=== PATIENT | male | born 1960 | race Caucasian/White ===

== ENCOUNTER 2017-07-27 09:33 | Day surgery (SDC) | payer OTHER ==
[~2017-07-27] VITALS: Ht 188 cm; Wt 97.1 kg
[~2017-07-27 09:33] MED LIST: OMEPRAZOLE20 MG PO
--- NOTE | 2017-07-27 14:37 | NUR ---
07/27/17 1437 Ashia Macdonald 1427: PT ARRIVED TO PACU NEEDED AIRWAY SUPPORT BY OVIDIO COLMENARES. 1432: PT AWAKE AND TALKING, MAINTAINING OWN AIRWAY. DENINES ANY PAIN OR NAUSEA.
[2017-07-27] MEDS ORDERED: HYDROCODON-ACE1 EA10 PO (14:43)
[2017-07-27] MEDS ORDERED: MAPAP325 MG PO (14:43)
--- NOTE | 2017-07-27 15:14 | NUR ---
ICED WATER AND SOUP GIVEN. CALL LIGHT W/IN REACH. SPOUSE @ BS.
--- NOTE | 2017-07-27 15:55 | NUR ---
LE 1540: PT UP TO BR W/RN STANDBY. PT AMBULATES WELL AND VOIDS 800 ML CLEAR YELLOW URINE. MD IN TO SPEAK W/PATIENT AND SPOUSE AND THEN OKAYS DC HOME. VERBAL DC INSTRUCTIONS GIVEN AND BOTH VERBALIZE UNDERSTANDING. PT TRANSFERS SELF WELL TO AND PERSONAL VEHICLE.
--- NOTE | 2017-07-31 10:36 | OR ---
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 PROCEDURE Excision of sternal skin lesion with layered closure (3.0 cm). Excision of right facial melanoma in situ, excision size 5.5 cm. SURGEON: Georgia Greene MD. ANESTHESIA Local with monitored anesthesia care (Yvonne Saxena CRNA) and local anesthetic 1% Lidocaine with epinephrine. INDICATION This 57-year-old white man is a patient of Dr. Jas Dixon in [place], [place]. He was seen by me for skin lesions of his left arm, right leg and a relatively bland, somewhat irregular pigmented lesion of his right face posterior to the nasolabial skin crease and above the angle of t h e mandible. That lesion underwent incisional biopsy. The early 2 lesions excised were benign, but the facial skin lesion was found to have melanoma in situ. Additionally, he is noted to have a similar pigmented lesion of the sternum. The patient has extensive sun exposure, it is noted. He is admitted to undergo excision of both the sternal lesion for diagnosis and the facial lesion for definitive treatment. He understands as does his the risks of bleeding, infection, cosmetic deformity, need for additional treatment and other unforeseen complications including local recurrence, understand this, he wished to proceed. FINDINGS The sternal lesion was excised widely in full-thickness and with a tension-free closure that was layered. The facial lesion was excised absolutely along the line of skin tension taking advantage of the nasolabial skin crease and other local anatomic factors. Good cosmesis was maintained. DESCRIPTION OF PROCEDURE Electronically Signed By: GEORGIA GREENE MD 07/31/17 1036 PATIENT NAME: IVA MILLER OPERATIVE REPORT DATE OF : 56 PHYSICIAN: GEORGIA GREENE MD REPORT #: [id number] REPORT IS CONFIDENTIAL AND NOT TO BE RELEASED WITHOUT AUTHORIZATION [facility] [address] [place], [place] [address] Signed The patient was brought to the operating room and given intravenous sedation with close monitoring. The right face and sternal areas and neck were prepared with a DuraPrep solution and draped sterilely. Initial activity was on the sternal lesion. Using 1% Lidocaine with epinephrine, a field block was undertaken. Elliptical excision of a skin lesion undertaken transversely along the line of skin tension. Dissection was carried through the subcutaneous tissue with electrocautery. Full-thickness excision was accomplished. Superior and inferior flaps were developed to allow for tension-free closure. Using interrupted 3-0 Vicryl in the deep dermal layer, the wound was reapproximated. The skin was then approximated with running 6-0 nylon suture. Subsequently an OpSite dressing was applied. Attention was turned to the facial lesion. With extreme care, the lines of skin tension were carefully marked. Various manipulations of the face were undertaken to affirm this. A somewhat boomerang or lazy-S configuration was noted to allow for complete excision of the pigmented lesion, which admittedly was rather subtle in its appearance. A 1% Lidocaine with epinephrine was injected locally and once anesthesia complete, excision undertaken with a 15 blade. Care was taken to excise full-thickness through the dermis and further dissection through the fatty layer just beneath the dermis undertaken. Hemostasis was assured with needlepoint electrocautery. The wound was then closed with interrupted 3-0 Vicryl in deep dermal layer and given the redundancy of the lower face and his particular anatomic features, good reapproximation was noted without skin tension. A 6-0 nylon was used as a running stitch in the skin to provide complete closure. Photographs were taken throughout. Bacitracin was applied to the wound as was the gauze dressing and OpSite. The patient was ultimately allowed to emerge from sedation and ultimately transferred to the recovery room in good condition. Blood loss minimal. MD ERICH Johns/Brentl /[id number] Electronically Signed By: GEORGIA GREENE MD 07/31/17 1036 PATIENT NAME: IVA MILLER OPERATIVE REPORT DATE OF : 56 PHYSICIAN: GEORGIA GREENE MD REPORT #: [id number] REPORT IS CONFIDENTIAL AND NOT TO BE RELEASED WITHOUT AUTHORIZATION [address] [address] Signed cc: Bry Dixon MD Electronically Signed By: GEORGIA GREENE MD 07/31/17 1036 PATIENT NAME: IVA MILLER OPERATIVE REPORT DATE OF : 56 PHYSICIAN: GEORGIA GREENE MD REPORT #: [id number] REPORT IS CONFIDENTIAL AND NOT TO BE RELEASED WITHOUT AUTHORIZATION
== END 2017-07-27 15:52 | disposition home or self-care (01) ==
LOC: DS 09:33
PROVIDERS: Surgery
PROC: 0HB5XZZ Excision of Chest Skin, External Approach (ICD-10-PCS; 2017-07-27)
PROC: 0HB1XZZ Excision of Face Skin, External Approach (ICD-10-PCS; principal; 2017-07-27 11:45)
PROC: 0HQ5XZZ Repair Chest Skin, External Approach (ICD-10-PCS; 2017-07-27 11:45)
DX: D03.30 Melanoma in situ of unspecified part of face (principal); L81.4 Other melanin hyperpigmentation; K21.9 Gastro-esophageal reflux disease without esophagitis; Z98.890 Other specified postprocedural states
CPT/HCPCS: 00300; J0690; J1100; J1885; J2250; J2405; J2704; J7120

== ENCOUNTER 2023-01-21 12:04 | Emergency (ER) | payer OTHER ==
[~2023-01-21] VITALS: Ht 188 cm; Wt 99.8 kg
[~2023-01-21 12:04] MED LIST changes: +HYDROCODON-ACE1 EA10 PO; +MAPAP325 MG PO
[2023-01-21] MEDS ORDERED: LOSARTAN POTASS50 MG PO (12:32)
[2023-01-21] MEDS ORDERED: HYDROCODON-ACE1 EA10 PO (13:21)
== END 2023-01-21 13:27 | disposition home or self-care (01) ==
LOC: ED 12:04
DX: S20.212A Contusion of left front wall of thorax, initial encounter (principal); W22.8XXA Striking against or struck by other objects, initial encounter; I10 Essential (primary) hypertension; Z79.899 Other long term (current) drug therapy
CPT/HCPCS: 71101; 99283-25